=== PATIENT | male | born 1970 | race Caucasian/White ===

== ENCOUNTER 2016-12-24 18:40 | Emergency (ER) | payer MEDICARE, SELFPAY ==
[2016-12-24 19:54] LABS: BASO % 0.5 % (0.2-1.2); EOS % 0.8 % (0.8-7.0); GRAN # 1.5 10_X3_uL (1.8-5.4); HEMATOCRIT 43.3 % (40-51); HEMOGLOBIN 14.8 g/dL (13.7-17.5); LYMPH # 1.5 10_X3_uL (1.3-3.6); LYMPH % 38.9 % (21.8-53.1); MEAN CORPUSCULAR HEMOGLOBIN 28.7 pg (27.0-33.0); MEAN CORPUSCULAR HGB CONC 34.2 g/dL (32.0-36.0); MEAN CORPUSCULAR VOLUME 83.9 fL (79-92); MEAN PLATELET VOLUME 8.7 fl (7.5-11.5); MONO # 0.8 10_X3_uL (0.3-0.8); MONO % 19.8 % (5.3-12.2); PLATELET COUNT 180 x10_3/uL (163-337); RED BLOOD COUNT 5.16 x10_6/uL (4.6-6.1); RED CELL DISTRIBUTION WIDTH 13.7 % (11.6-14.4); WHITE BLOOD COUNT 3.8 x10_3/uL (4.2-9.1)
[2016-12-24 20:07] LABS: ALBUMIN 3.7 gm/dL (3.4-5.0); ALKALINE PHOSPHATASE 71 U/L (50-136); ALT/SGPT 47 U/L (7.53-40.17); AST/SGOT 31 U/L (6.66-35.34); BILIRUBIN,TOTAL 0.28 mg/dL (0.0-1.0); BLOOD UREA NITROGEN 12 mg/dL (7-18); CARBON DIOXIDE 25 mmol/L (21-32); CREATININE 0.7 mg/dL (0.6-1.3); GLUCOSE,RANDOM 103 mg/dL (70-99); SODIUM 141 mmol/L (136-145); TOTAL PROTEIN 6.8 gm/dL (6.4-8.2)
== END 2016-12-24 21:35 | disposition home or self-care (01) ==
LOC: ER 18:40
PROVIDERS: Emergency Medicine
DX: J10.1 Influenza due to other identified influenza virus with other respiratory manifestations (principal); G40.909 Epilepsy, unspecified, not intractable, without status epilepticus; R05 Cough; Z79.899 Other long term (current) drug therapy
CPT/HCPCS: 36415; 71020; 80053; 85025; 87040; 87070; 87400; 87880; 94664; 96374; 99070; 99283-25; 99284; J2930